=== PATIENT | female | born 1955 | race Caucasian/White ===

== ENCOUNTER 2018-01-13 15:49 | Emergency (ER) | payer OTHER ==
[2018-01-13 16:19] VITALS: BP 114/48
[2018-01-13] MEDS ORDERED: Tetan/Diph/Pertus SYR(Tdap)* 0.5 ML SYR(BOOSTRIX) use SYR IM ONE (16:32)
[2018-01-13] MEDS ORDERED: Ibuprofen TAB* 600 MG PO ONE (16:48)
--- NOTE | 2018-01-13 16:49 | UC ---
Hand/Wrist HPI - HPI Summary HPI Summary: The patient is a 62-year-old female that sustained a flap laceration over the dorsum of her left fifth DIP joint about 5 days ago. She is unsure of her last tetanus. She is right handed. She butterflied the laceration. Today she started having increased pain. He is concerned that she has developed an infection. She has no fever. No history of skin infections. - History Of Current Complaint Chief Complaint: UCUpperExtremity Stated Complaint: FINGER LACERATION Time Seen by Provider: 01/13/18 16:30 Hx Obtained From: Patient Hx Last Menstrual Period: [employer] Onset/Duration: Sudden Onset, Lasting Days Severity Initially: Mild Severity Currently: Mild Pain Intensity: 4 Pain Scale Used: 0-10 Numeric Character Of Pain: Dull, Aching Aggravating Factor(s): Movement Alleviating Factor(s): Nothing Associated Signs And Symptoms: Positive: Swelling, Redness Related History: Dominant Hand Right - Allergies/Home Medications Allergies/Adverse Reactions: Allergies Allergy/AdvReac Type Severity Reaction Status Date / Time No Known Allergies Allergy Verified 01/13/18 16:20 PMH/Surg Hx/FS Hx/Imm Hx Previously Healthy: Yes - Surgical History Surgical History: Yes Surgery Procedure, Year, and Place: [place]. Tonsillectomy in 1969 in [facility] - Family History Known Family History: Positive: Hypertension - Social History Alcohol Use: Occasionally Substance Use Type: None Smoking Status (MU): Former Smoker Review of Systems All Other Systems Reviewed And Are Negative: Yes Constitutional: Positive: Negative Skin: Positive: Negative Eyes: Positive: Negative ENT: Positive: Negative Respiratory: Positive: Negative Cardiovascular: Positive: Negative Gastrointestinal: Positive: Negative Genitourinary: Positive: Negative Motor: Positive: Negative Neurovascular: Positive: Negative Musculoskeletal: Positive: Arthralgia Neurological: Positive: Negative Psychological: Positive: Negative Physical Exam Triage Information Reviewed: Yes Appearance: Well-Appearing, No Pain Distress, Well-Nourished Vital Signs: Initial Vital Signs Temp 98.2 F 01/13/18 16:14 Pulse 82 01/13/18 16:14 Resp 16 01/13/18 16:14 BP 114/48 01/13/18 16:14 Pulse Ox 100 01/13/18 16:14 Vital Signs Reviewed: Yes Eyes: Positive: Conjunctiva Clear ENT: Positive: Hearing grossly normal. Negative: Pharyngeal erythema, Nasal congestion, TMs normal, Tonsillar swelling, Tonsillar exudate, Trismus, Muffled voice Neck: Positive: Supple Respiratory: Positive: Lungs clear, Normal breath sounds, No respiratory distress Cardiovascular: Positive: RRR, No Murmur Musculoskeletal: Positive: ROM Intact, No Edema Neurological: Positive: Alert Psychological Exam: Normal Hand/Wrist Course/Dx - Differential Dx/Diagnosis Provider Diagnoses: left little finger cellulitis Discharge - Sign-Out/Discharge Documenting (check all that apply): Patient Departure All imaging exams completed and their final reports reviewed: No Studies - Discharge Plan Condition: Stable Disposition: HOME Prescriptions: Cephalexin CAP* [Keflex CAP*] 500 mg PO QID #28 cap Patient Education Materials: Cellulitis (ED) Referrals: Shannon Pinto MD [Primary Care Provider] - 3 Days (if not better) Additional Instructions: warm soapy soaks 3-4 x day until better gently dry thin film of aquaphor healing ointment keep open to air periodically wear splint when working return for worsening symptoms - Billing Disposition and Condition Condition: STABLE Disposition: Home Images Hands: 1 - red/swollen, able to fully extend, healing lac
== END 2018-01-13 17:04 | disposition home or self-care (01) ==
LOC: UCEAST 15:49
DX: L03.012 Cellulitis of left finger (principal); Z87.891 Personal history of nicotine dependence
CPT/HCPCS: 90471; 90715; 99212; A9270-GY; G0463